=== PATIENT | male | born 1975 | race Caucasian/White ===

== ENCOUNTER 2023-10-28 08:55 | Emergency (ER) | payer OTHER ==
[~2023-10-28] VITALS: Ht 182.9 cm; Wt 113.4 kg
[~2023-10-28 08:55] MED LIST: ACETAMINOPHEN-1 EAC4 PO; ADDERALL 20 MG20 MG PO; HYDROCODON-ACE1 EA12 PO; LOSARTAN POTASS25 MG PO; NP THYROID15 MG PO; SOMA350 MG PO; TESTOSTERO100 MG/1 M INJ; TRAZODONE HCL150 MG PO; VIT B12 INJ
[2023-10-28 08:58] VITALS: PULSE 89; RESP 17; TEMP 98.5; O2SAT 99
[2023-10-28] MEDS ORDERED: LIDOCAINE 1% 10 ML MULTIDOSE VIAL IJ ONE (09:30)
[2023-10-28 09:31] LABS: BASOPHILS % 0.2 % (0.0-1.0); EOSINOPHILS # (AUTO) 0.1 (0.0-0.4); EOSINOPHILS % 0.9 % (0.0-6.0); HEMOGLOBIN 14.5 g/dL (14.0-18.0); LYMPHOCYTES # (AUTO) 1.1 (1.0-3.2); LYMPHOCYTES % 8.2 % (18.0-39.1); MEAN CORPUSCULAR HEMOGLOBIN 31.3 pg (28-32); MEAN CORPUSCULAR VOLUME 94.8 fL (81-99); MONOCYTES # (AUTO) 0.8 (0.2-0.8); MONOCYTES % 5.9 % (4.4-11.3); NEUTROPHILS # (AUTO) 10.8 (2.1-6.9); NEUTROPHILS % 84.2 % (38.7-80.0); PLATELET COUNT 262 x10e3/uL (140-360); RED BLOOD COUNT 4.64 x10e6/uL (4.3-5.7); RED CELL DISTRIBUTION WIDTH 14.2 % (11.7-14.4); WHITE BLOOD COUNT 12.81 x10e3/uL (4.8-10.8)
[2023-10-28] MEDS ORDERED: CEPHALEXIN500 MG PO (10:14)
== END 2023-10-28 11:27 | disposition home or self-care (01) ==
LOC: ER 08:57
DX: L03.311 Cellulitis of abdominal wall (principal); Z98.890 Other specified postprocedural states
CPT/HCPCS: 36415; 85025; 99283; J0690; J7050